=== PATIENT | female | born 1950 ===

== ENCOUNTER 2024-12-27 07:28 | Day surgery (SDC) | payer OTHER ==
[2024-12-27] MEDS ORDERED: FLUMAZENIL 0.5 MG/5 ML ML IV STA (12:19)
[2024-12-27] MEDS ORDERED: NALOXONE HCL 0.4 MG/ML AMPUL IV STA (12:19)
[2024-12-27] MEDS ORDERED: DIPHENHYDRAMINE HCL 50 MG/ML VIAL 1ML IV ONE (12:30)
[2024-12-27] MEDS ORDERED: fentaNYL CITRATE 50 MCG/ML AMPUL IV PUSH ONE (12:30)
[2024-12-27] MEDS ORDERED: MIDAZOLAM HCL 2 MG/2 ML VIAL IV ONE (12:30)
== END 2024-12-27 14:10 | disposition home or self-care (01) ==
LOC: AMB-ENDOS 07:28
PROVIDERS: ATTEND Colon & Rectal Surgery
DX: D12.3 Benign neoplasm of transverse colon (principal); K57.30 Diverticulosis of large intestine without perforation or abscess without bleeding; K63.5 Polyp of colon